=== PATIENT | female | born 1965 | race African-American/Black ===

== ENCOUNTER 2020-02-19 21:55 | Emergency (ER) | payer MEDICARE, MEDICAID ==
[~2020-02-19] VITALS: Ht 175.3 cm; Wt 119.8 kg
[2020-02-19] MEDS ORDERED: HALOPERIDOL 5 MG5 MG PO (22:10)
[2020-02-19] MEDS ORDERED: NORVASC 2.5 MG2.5 M1 PO (22:11)
[2020-02-19] MEDS ORDERED: DULOXETINE HCL30 MG PO (22:11)
[2020-02-19] MEDS ORDERED: PRAZOSIN 1 MG CA1 M1 PO (22:11)
[2020-02-19] MEDS ORDERED: PROAIR HFA8.5 GM INH (22:12)
[2020-02-19] MEDS ORDERED: HALOPERIDOL 2 MG2 MG PO (22:12)
[2020-02-19] MEDS ORDERED: DESYREL150 MG PO (22:12)
[2020-02-19 22:25] LABS: URINE BILIRUBIN NEGATIVE (Negative); URINE BLOOD NEGATIVE (Negative); URINE CLARITY CLEAR; URINE COLOR YELLOW; URINE GLUCOSE-RANDOM NEGATIVE (Negative); URINE KETONES TRACE (Negative); URINE LEUKOCYTES NEGATIVE (Negative); URINE NITRITE NEGATIVE (Negative); URINE PROTEIN NEGATIVE (Negative)
[2020-02-19 22:31] LABS: AMP/METHAMP Negative (Negative); BARBITURATES Negative (Negative); BENZODIAZEPINES Negative (Negative); COCAINE Negative (Negative); METHADONE Negative (Negative); OPIATES Negative (Negative); PCP Negative (Negative); THC POSITIVE (Negative)
[2020-02-19 23:19] LABS: CALCIUM 8.2 mg/dL (8.5-10.1); CREATININE 0.8 mg/dL (0.6-1.3)
[2020-02-19 23:23] LABS: ACETAMINOPHEN < 2 ug/mL (10-30); ALCOHOL < 10 mg/dL (<10); HEMATOCRIT 39.2 % (37.0-47.0); HEMOGLOBIN 12.7 gm/dL (12.0-15.0); MCH 26.7 pg (26.0-34.0); MCHC 32.5 g/dL (28.0-37.0); MCV 82.1 fL (80.0-100.0); MPV 8.1 fl. (7.2-11.1); RBC 4.77 mil/uL (4.20-5.00); RDW-CV 17.1 % (10.5-14.5); SALICYLATE 4.2 mg/dL (2.8-20.0); WBC 4.8 thou/uL (4.0-11.0)
[2020-02-19 23:24] LABS: ALBUMIN 3.2 g/dL (3.4-5.0); TOTAL BILIRUBIN 0.3 mg/dL (<0.1-1.0); TOTAL PROTEIN 6.8 g/dL (6.4-8.2)
[2020-02-20 03:45] VITALS: BP 148/68
[2020-02-20 05:40] LABS: POTASSIUM 2.9 mmol/L (3.5-5.1)
== END 2020-02-20 03:45 ==
LOC: M.ERS 21:55
PROVIDERS: Personal Emergency Response Attendant
DX: F23 Brief psychotic disorder (principal); E87.6 Hypokalemia; R45.851 Suicidal ideations; J44.9 Chronic obstructive pulmonary disease, unspecified; F31.9 Bipolar disorder, unspecified; F17.210 Nicotine dependence, cigarettes, uncomplicated; Z20.828 Contact with and (suspected) exposure to other viral communicable diseases